=== PATIENT | male | born 1990 | race American Indian/Alaskan Native ===

== ENCOUNTER 2016-05-27 18:03 | Emergency (ER) | payer MEDICAID ==
[2016-05-27 18:20] VITALS: BP 118/68
--- NOTE | 2016-05-27 18:49 | Emergency Department Report ---
Chief Complaint: Syncope Stated Complaint: VOMITING/WEAK Time Seen by Provider: 05/27/16 18:43 - HPI History of Present Illness: Patient is a 25-year-old male who presents to ED complaining near syncopal episode earlier today. Patient states he was interested in all day today smoking only. Patient states he called his girlfriend pick him up about an hour ago when he took Percocet by mouth for his back pain. Patient states has a girlfriend was driving to the hospital he started to feel faint and feel like he was about a door. Patient states when he got to the [facility] with his girlfriend, he did not know his colon on he felt like his eyes rolled to the back of the hand and all he remembered were people asking him if he was okay. Patient states he was told by the room and held staff that he did caught him before he sensitive ground. Patient did mention that he had not eating in 2 days Patient denies history of syncopal episode, seizure, fever, nausea, vomiting, chills, abdominal pain or any other problems. - ROS Review of Systems: As noted in HPI - Exam Vital Signs: Vital Signs 05/27/16 18:11 Temperature 97.6 F Pulse Rate 60 Respiratory 18 Rate Blood Pressure 118/68 O2 Sat by Pulse 100 Oximetry Physical Exam: GENERAL: Alert and oriented x3, no apparent distress, Normal Gait, atraumatic. HEAD: Head is normocephalic and a-traumatic. EYES: Extra ocular muscles are intact. Pupils are equal, round, and reactive to light and accommodation. LUNGS: Symetrical with respiration, No wheezing, no rales or crackles, CTAB. HEART: S1, S2 present, regular rate and rhythm without murmur, no rubs, no gallops. SKIN: Warm and dry, No lesions, No ulceration or induration present. MSE screening note: Focused history and physical exam performed. Due to findings the following was ordered: ED Medical Decision Making - Medical Decision Making Labs ordered. Patient awaiting to see the physician. ED Disposition for MSE Condition: Stable
[2016-05-27] MEDS ORDERED: ZOFRAN ODT PO ONE (18:54)
[2016-05-27 21:14] LABS: Bilirubin,Urine NEG (Negative); Blood,Urine NEG (Negative); Ketones,Urine NEG (Negative); Leukocyte Esterase,Urine NEG (Negative); Mucus,Urine FEW /HPF; Nitrite,Urine NEG (Negative); Protein,Urine <15 mg/dL mg/dL (Negative); Urobilinogen,Urine < 2.0 mg/dL (<2.0); WBC,Urine < 1.0 /HPF (0.0-6.0)
--- NOTE | 2016-05-29 16:00 | ED Elopement Review ---
ED Pt Elopement review - Results review Lab results: Laboratory Tests 05/27/16 20:00 Urine Color Yellow Urine Turbidity Clear Urine pH 6.0 Ur Specific [place] 1.010 Urine Protein <15 mg/dl Urine Glucose (UA) Neg Urine Ketones Neg Urine Blood Neg Urine Nitrite Neg Urine Bilirubin Neg Urine Urobilinogen < 2.0 Ur Leukocyte Esterase Neg Urine WBC (Auto) < 1.0 Urine RBC (Auto) 1.0 U Epithel Cells (Auto) < 1.0 Hyaline Casts 1 Urine Mucus Few - Call Back decision Pt Call Back Decision: No action required
== END 2016-05-27 22:10 | disposition left against medical advice (07) ==
LOC: ED 18:03
DX: R55 Syncope and collapse (principal); R11.10 Vomiting, unspecified; R53.1 Weakness; Z53.21 Procedure and treatment not carried out due to patient leaving prior to being seen by health care provider
CPT/HCPCS: 81001